=== PATIENT | female | born 1950 | race Caucasian/White ===

== ENCOUNTER → 2020-10-22 | Outpatient (CLI) | payer OTHER ==
[~2020-10-22] MED LIST: ADVAIR 250-501 EACH INH; ALLOPURINOL 10100 M1 PO; AVAPRO75 MG PO; ESTRACE42.5 GM VAG; FISH OIL 1,0001 EAC8 PO; GLUCOSAMINE &1 EACH PO; MAGINEX61 MG PO; MELOXICAM15 MG PO; PROBIOTIC1 EAC7 PO; RESTORIL15 M1 PO; SINGULAIR 10 MG10 M1 PO; SPIRONOLACTONE25 MG PO; ZOCOR 20 MG TAB20 M1 PO
== END ==
LOC: LAB 09:02
PROVIDERS: ATTEND Specialist
DX: Z01.812 Encounter for preprocedural laboratory examination (principal); Z20.828 Contact with and (suspected) exposure to other viral communicable diseases

== ENCOUNTER → 2020-10-27 | Outpatient (CLI) | payer OTHER ==
[~2020-10-27] VITALS: Ht 167.6 cm; Wt 64.9 kg
--- NOTE | 2020-10-27 14:56 | P ---
[facility] [place] [address] PROCEDURE REPORT Name: LOLY PEDRAZA [id number] Admission: 10/27/20 Attend Phys: Dimitri Garcia Discharge: Date of : 50 Report #: [id number] THIS REPORT FOR: cc: Bailee Velasco, Bailee Gan,Dimitri Ledesma MD ~ DATE OF SERVICE: 10/27/2020 PROCEDURE PERFORMED: Upper endoscopy with biopsies. HISTORY OF PRESENT ILLNESS: The patient is a 70-year-old female who had a lap band placed approximately 30 years ago for weight loss. Had an episode of low abdominal pain recently resulting in a CT scan of the abdomen and pelvis on 09/13/2020. This showed indwelling lap band device, lower esophagus is patulous and demonstrates circumferential mural thickening. 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 Patient denies any heartburn. Denies any dysphagia. No nausea or vomiting. Her weight has been stable for many years. Bowel movements have been normal. Last colonoscopy greater than 10 years ago. Plan is for upper endoscopy. DESCRIPTION OF PROCEDURE: The risks and benefits of the procedure were explained to the patient, those risks including but not limited to bleeding, perforation and the risk of sedation. She understood these risks and gave informed consent. Sedation was given using propofol per anesthesia. Next, using a standard Olympus upper endoscope, the scope was placed in the patient's mouth and advanced under direct vision through the esophagus, stomach and into the second portion of the duodenum. The entire esophagus was dilated somewhat as well as showing severe erosive esophagitis with multiple ulcerations, especially in the distal esophagus. No evidence of bleeding. Multiple biopsies were obtained. There was some food residual within the distal esophagus. This was aspirated away. Upon entering the stomach, there was not much of a gastric pouch suggesting the lap band may have migrated over time. I was able to advance the scope through the lumen and the area of the lap band without difficulty. On retroflexion, the lap band appears to be in position; however, again, this may have migrated up resulting in no significant gastric pouch. There was a mild gastritis. Biopsies were obtained to rule out H. pylori. No evidence of ulcerations in the stomach. The antrum was normal. The pylorus was normal and patent. The duodenal bulb, first and second portion were all normal. The scope was then withdrawn and the procedure terminated. The patient tolerated the procedure well. IMPRESSION: 1. Dilation of the esophagus with severe grade D erosive esophagitis and ulcerations. [address] [address] PROCEDURE REPORT Name: KEILALOLY Room #: REG [facility] Heredia#: [id number] Admission: 10/27/20 Attend Phys: Dimitri Garcia Discharge: Date of : 50 Report #: [id number] 2. Lap band in place, but suspect this may have migrated proximally leaving minimal gastric pouch. 3. Mild gastritis. RECOMMENDATIONS: 1. Await biopsy results. 2. We will start b.i.d. PPI therapy and Carafate at this time. 3. We will discuss options with the patient. I suspect her food is likely staying in her distal esophagus for prolonged periods of time as the esophagus is dilated and there are severe esophagitis without much of a gastric pouch. Because of this, I would consider removing the lap band device. Another potential option would be aggressive PPI therapy and Carafate and repeating upper endoscopy in the near future to see if this was healed. We will discuss these options with the patient. Thank you for allowing me to participate in her care. <ELECTRONICALLY SIGNED> By: Dimitri Art MD 10/27/20 1456 1056 1227 Dimitri Art MD /nt
--- NOTE | 2020-11-01 19:07 | PATH ---
[facility] [address] [place] [address] PATHOLOGY RPT PROCEDURE Name: ALLEGRA HARVEY Room #: REG [facility] Heredia#: [id number] Admission: 10/27/20 Date of : 50 Discharge: Report #: [id number] Path Case #: [id number] [facility] Accession Number: [id number] . 01 Material submitted: . PART A: gastrointestinal site - GASTRITIS R/O H. PYLORI PART B: esophagus - ESOPHAGUS, ESOPHAGITIS . 02 Diagnosis: A. Gastric mucosa, gastritis, rule out H. pylori, endoscopic biopsy: - Mild chronic active gastritis. - Negative for intestinal metaplasia or atrophy. - Negative for Helicobacter pylori (properly controlled immunohistochemical stain performed). . B. Squamous mucosa, esophagus/esophagitis, endoscopic biopsy: - Mild active esophagitis. - Negative for intestinal metaplasia or dysplasia. (IUV:pit 11/01/2020) QTP 11/01/2020 1402 Local . 02 Electronically signed: . Savannah Franco MD, Pathologist NPI- [id number] . 01 Gross description: . A. The specimen is received in formalin, labeled "Allegra Harvey, ASIA gastritis" and consists of multiple fragments of thacker tissue measuring 1.0 x 0.7 x 0.3 cm aggregate which are entirely submitted in A1. . B. The specimen is received in formalin, labeled "Allegra Harvey, BX esophagus" and consists of multiple translucent fragments of pink tissue measuring 1.3 x 0.8 x 0.3 cm in aggregate which are entirely submitted in B1. (SDY; 10/29/2020) SYU/SYU 10/29/2020 1140 Local . 02 Pathologist provided ICD-10: K29.50, K20.90 . 02 CPT . 588986, 743571, X36853 Specimen Comment: A courtesy copy of this report has been sent to [phone] Specimen Comment: Report sent to Performed at: [address] [facility], [place] [id number] [place] [address] PATHOLOGY RPT PROCEDURE Name: ALLEGRA HARVEY Riley Room #: REG [facility] Yan#: [id number] Admission: 10/27/20 Date of : 50 Discharge: Report #: [id number] Path Case #: [id number] MD Larry Anand MD Phone: [phone] Performed at: [address] [id number] MD Savannah Franco MD Phone: [phone]
== END | disposition home or self-care (01) ==
LOC: GI
PROVIDERS: ATTEND Specialist
DX: K29.50 Unspecified chronic gastritis without bleeding (principal); K20.90 Esophagitis, unspecified without bleeding; I10 Essential (primary) hypertension; E78.5 Hyperlipidemia, unspecified; M10.9 Gout, unspecified; J45.909 Unspecified asthma, uncomplicated; Z98.890 Other specified postprocedural states; Z79.899 Other long term (current) drug therapy; Z98.84 Bariatric surgery status; Z90.710 Acquired absence of both cervix and uterus
CPT/HCPCS: 62110; 62900